=== PATIENT | male | born 1995 | race Caucasian/White ===

== ENCOUNTER → 2019-08-28 15:50 | Outpatient (CLI) | payer OTHER, SELFPAY ==
[2019-08-28 16:30] LABS: Influenza A - CEPHEID Flu A NEGATIVE (NEGATIVE); Influenza B - CEPHEID Flu B NEGATIVE (NEGATIVE)
== END ==
PROVIDERS: Visit Provider Nurse Practitioner
DX: R50.9 Fever, unspecified (principal)
CPT/HCPCS: 87502

== ENCOUNTER → 2020-05-30 14:36 | Outpatient (CLI) | payer OTHER, SELFPAY ==
--- NOTE | 2020-05-30 14:38 | DI.US.S_ITS ---
PROCEDURE: US ABDOMEN LIMITED INDICATIONS: PELVIC SWELLING/LUMP TECHNIQUE: Real-time focused scanning was performed of the abdomen, with image documentation. COMPARISON: None. FINDINGS: Ultrasound was performed in the area of interest. There is a 7 mm lymph node which correlates with the palpable lump. No inguinal hernia is identified. IMPRESSION: 1. The palpable lump in the right groin correlates with a normal-sized lymph node. No inguinal hernia is present. Dictated by: Austyn Ruiz M.D. on 05/30/2020 at 16:06 Approved by: Austyn Ruiz M.D. on 05/30/2020 at 16:08
== END ==
PROVIDERS: Referring Provider Physician Assistant; Visit Provider Physician Assistant
DX: R19.00 Intra-abdominal and pelvic swelling, mass and lump, unspecified site (principal)
CPT/HCPCS: 76705